=== PATIENT | female | born 1955 | race Caucasian/White ===

== ENCOUNTER 2019-09-16 01:09 | Emergency (ER) | payer BC ==
[~2019-09-16] VITALS: Ht 157.5 cm; Wt 76.2 kg
[2019-09-16 01:14] VITALS: Ht 157.5 cm; Wt 76.2 kg
[2019-09-16 02:41] LABS: BASOPHIL % 0.2 % (0-2); PLATELET COUNT 271 x10^3mcL (130-400); RED CELL DISTRIBUTION WIDTH 13.4 % (11.5-14.5)
[2019-09-16 03:03] LABS: ALBUMIN 3.5 g/dL (3.4-5.0); CALCIUM 9.2 mg/dL (8.5-10.1); CARBON DIOXIDE 30.4 mmol/L (21-32); CHLORIDE SERUM 102 mmol/L (98-107); CREATININE SERUM 0.7 mg/dL (0.6-1.0); GFR1 > 60 mL/min; GLUCOSE SERUM 125 mg/dL (74-106); POTASSIUM SERUM 3.8 mmol/L (3.5-5.1); SODIUM SERUM 139 mmol/L (136-145); TOTAL PROTEIN, SERUM 7.5 g/dL (6.4-8.2)
[2019-09-16 03:04] LABS: ALKALINE PHOSPHATASE 109 U/L (46-116); ALT/SGPT 32 U/L (14-59); AMYLASE 96 U/L (25-115); AST/SGOT 22 U/L (15-37); LIPASE 214 IU/L (73-393)
[2019-09-16 04:59] VITALS: BP 110/55
== END 2019-09-16 04:59 | disposition home or self-care (01) ==
LOC: ED 01:09
PROVIDERS: Emergency Medicine
DX: K80.20 Calculus of gallbladder without cholecystitis without obstruction (principal)
CPT/HCPCS: J1885; J2405; J3010; Q0092

== ENCOUNTER 2020-08-18 09:56 | Emergency (ER) | payer BC, MEDICAID ==
[~2020-08-18] VITALS: Ht 157.5 cm; Wt 80.7 kg
[2020-08-18 11:34] VITALS: BP 120/61
== END 2020-08-18 11:34 | disposition home or self-care (01) ==
LOC: ED 09:56
DX: S00.86XA Insect bite (nonvenomous) of other part of head, initial encounter (principal); S10.96XA Insect bite of unspecified part of neck, initial encounter; W57.XXXA Bitten or stung by nonvenomous insect and other nonvenomous arthropods, initial encounter; Y93.89 Activity, other specified; Y92.89 Other specified places as the place of occurrence of the external cause; Y99.8 Other external cause status